=== PATIENT | male | born 1955 | race African-American/Black ===

== ENCOUNTER 2017-09-24 14:55 | Emergency (ER) | payer MEDICAID ==
[~2017-09-24] VITALS: Ht 180.3 cm; Wt 113.0 kg
[2017-09-24 15:49] VITALS: BP 110/85
[2017-09-24 16:36] LABS: CLARITY URINE TURBID (CLEAR); COLOR URINE RED (YELLOW); GLUCOSE URINE NEGATIVE (NEGATIVE); KETONES URINE NEGATIVE (NEGATIVE); LEUKOCYTE ESTERASE URINE 1+ (NEGATIVE); NITRITE URINE NEGATIVE (NEGATIVE); OCCULT BLOOD URINE 3+ (NEGATIVE); PH URINE 5.5 (4.5-8.0); PROTEIN URINE 1+ (NEGATIVE); SPECIFIC GRAVITY URINE 1.018 (1.005-1.030); UROBILINOGEN URINE 0.2 E.U./dL (0.2-1.0)
== END 2017-09-24 17:57 | disposition home or self-care (01) ==
LOC: ER 15:31
DX: R31.9 Hematuria, unspecified (principal); N39.0 Urinary tract infection, site not specified; J45.909 Unspecified asthma, uncomplicated; F17.200 Nicotine dependence, unspecified, uncomplicated
CPT/HCPCS: 81001; 99283

== ENCOUNTER 2018-02-04 15:26 | Emergency (ER) | payer MEDICAID ==
[~2018-02-04] VITALS: Ht 180.3 cm; Wt 112.0 kg
[2018-02-04 16:00] VITALS: BP 121/91
== END 2018-02-04 17:46 | disposition home or self-care (01) ==
LOC: ER 16:53
DX: L02.416 Cutaneous abscess of left lower limb (principal); J45.909 Unspecified asthma, uncomplicated; F17.200 Nicotine dependence, unspecified, uncomplicated; Z98.890 Other specified postprocedural states
CPT/HCPCS: 99283

== ENCOUNTER 2018-12-10 04:06 | Emergency (ER) | payer MEDICAID ==
[~2018-12-10] VITALS: Ht 180.3 cm; Wt 118.0 kg
[2018-12-10 04:21] VITALS: BP 141/104
== END 2018-12-10 06:29 | disposition left against medical advice (07) ==
LOC: ER 04:06
DX: Z53.21 Procedure and treatment not carried out due to patient leaving prior to being seen by health care provider (principal)

== ENCOUNTER 2019-05-01 12:46 | Emergency (ER) | payer MEDICAID, OTHER ==
[~2019-05-01] VITALS: Ht 180.3 cm; Wt 120.0 kg
[2019-05-01 15:22] LABS: CLARITY URINE CLEAR (CLEAR); COLOR URINE YELLOW (YELLOW); KETONES URINE TRACE (NEGATIVE); LEUKOCYTE ESTERASE URINE NEGATIVE (NEGATIVE); NITRITE URINE NEGATIVE (NEGATIVE); OCCULT BLOOD URINE NEGATIVE (NEGATIVE); PH URINE 5.5 (4.5-8.0); PROTEIN URINE NEGATIVE (NEGATIVE); SPECIFIC GRAVITY URINE 1.031 (1.005-1.030)
[2019-05-01 15:33] VITALS: BP 133/78
== END 2019-05-01 15:34 | disposition home or self-care (01) ==
LOC: ER 12:46
DX: S30.812A Abrasion of penis, initial encounter (principal); J45.909 Unspecified asthma, uncomplicated; F17.200 Nicotine dependence, unspecified, uncomplicated; Z98.890 Other specified postprocedural states; Z88.8 Allergy status to other drugs, medicaments and biological substances; X08.8XXA Exposure to other specified smoke, fire and flames, initial encounter; Y93.89 Activity, other specified; Y92.89 Other specified places as the place of occurrence of the external cause; Y99.8 Other external cause status
CPT/HCPCS: 99283

== ENCOUNTER 2021-08-04 23:44 | Emergency (ER) | payer OTHER ==
[~2021-08-04] VITALS: Ht 180.3 cm; Wt 123.0 kg
[2021-08-04 23:58] VITALS: BP 128/88
[2021-08-05 00:47] LABS: CLARITY URINE CLOUDY (CLEAR); COLOR URINE YELLOW (YELLOW); KETONES URINE TRACE (NEGATIVE); LEUKOCYTE ESTERASE URINE NEGATIVE (NEGATIVE); NITRITE URINE NEGATIVE (NEGATIVE); OCCULT BLOOD URINE NEGATIVE (NEGATIVE); PH URINE 5.5 (4.5-8.0); PROTEIN URINE TRACE (NEGATIVE); SPECIFIC GRAVITY URINE 1.024 (1.005-1.030)
== END 2021-08-05 02:34 | disposition home or self-care (01) ==
LOC: ER 23:44
DX: R35.0 Frequency of micturition (principal); R30.0 Dysuria; J45.909 Unspecified asthma, uncomplicated; Z85.46 Personal history of malignant neoplasm of prostate; Z92.3 Personal history of irradiation; Z98.890 Other specified postprocedural states
CPT/HCPCS: 81003; 82962; 99283

== ENCOUNTER 2022-12-25 05:53 | Emergency (ER) | payer MEDICARE, MEDICAID ==
[~2022-12-25] VITALS: Ht 180.3 cm; Wt 125.0 kg
[~2022-12-25 05:53] MED LIST: ALBU17AE26 IH; RISP4 PO
[2022-12-25 06:42] VITALS: BP 150/104
[2022-12-25 07:53] LABS: CLARITY URINE CLEAR (CLEAR); COLOR URINE YELLOW (YELLOW); KETONES URINE NEGATIVE (NEGATIVE); LEUKOCYTE ESTERASE URINE NEGATIVE (NEGATIVE); NITRITE URINE NEGATIVE (NEGATIVE); OCCULT BLOOD URINE NEGATIVE (NEGATIVE); PH URINE 5.5 (4.5-8.0); PROTEIN URINE NEGATIVE (NEGATIVE); SPECIFIC GRAVITY URINE 1.014 (1.005-1.030)
[2022-12-25] MEDS ORDERED: TAMS-11 PO (07:57)
== END 2022-12-25 08:12 | disposition home or self-care (01) ==
LOC: ER 05:53
DX: R39.12 Poor urinary stream (principal); Z85.46 Personal history of malignant neoplasm of prostate; Z88.6 Allergy status to analgesic agent
CPT/HCPCS: 81003; 99283

== ENCOUNTER 2024-03-24 07:59 | Emergency (ER) | payer MEDICARE, MEDICAID ==
[~2024-03-24] VITALS: Ht 180.3 cm; Wt 122.0 kg
[~2024-03-24 07:59] MED LIST changes: +TAMS-11 PO
[2024-03-24 08:01] VITALS: TEMP 98.6; O2SAT 94
[2024-03-24] MEDS ORDERED: KETOROLAC 60MG/2ML VIAL IM ONE (09:00)
[2024-03-24] MEDS: CYCLOBENZAPRINE 10MG TABLET PO ONE (09:00)
[2024-03-24 09:15] VITALS: BP 146/92; PULSE 103; RESP 17
[2024-03-24] MEDS: KETOROLAC 30MG/ML VIAL IM NR (09:15)
[2024-03-24] MEDS ORDERED: IBUP-2030 MT (09:39)
[2024-03-24] MEDS ORDERED: CYCL10TA21 MT (09:39)
== END 2024-03-24 10:19 | disposition home or self-care (01) ==
LOC: ER 07:59
DX: S33.5XXA Sprain of ligaments of lumbar spine, initial encounter (principal); J45.909 Unspecified asthma, uncomplicated; N40.0 Benign prostatic hyperplasia without lower urinary tract symptoms; Z88.8 Allergy status to other drugs, medicaments and biological substances; Z98.890 Other specified postprocedural states; V89.2XXA Person injured in unspecified motor-vehicle accident, traffic, initial encounter; Y93.89 Activity, other specified; Y92.89 Other specified places as the place of occurrence of the external cause; Y99.8 Other external cause status
CPT/HCPCS: 99283; 96372; J1885